=== PATIENT | female | born 1945 | race Caucasian/White ===

== ENCOUNTER 2017-06-21 09:40 | Emergency (ER) | payer MEDICARE | END 2017-06-21 10:53 | disposition home or self-care (01) | LOC: M ED 09:40 | DX: T69.9XXA Effect of reduced temperature, unspecified, initial encounter (principal); Y92.9 Unspecified place or not applicable; Y93.9 Activity, unspecified; E11.9 Type 2 diabetes mellitus without complications; I10 Essential (primary) hypertension; Z86.73 Personal history of transient ischemic attack (TIA), and cerebral infarction without residual deficits; Z79.899 Other long term (current) drug therapy | CPT/HCPCS: 99284 ==

== ENCOUNTER 2018-01-20 13:32 | Inpatient (IN) | payer MEDICARE ==
[2018-01-20 15:01] LABS: VENOUS BASE EXCESS -1.7 (-2.0-2.0); VENOUS HCO3 23.3 MEQ/L (23.0-27.0); VENOUS O2 SATURATION 93.7 % (60.0-80.0); VENOUS PARTIAL PRESSURE CO2 40.3 mmHg (38.0-50.0); VENOUS PARTIAL PRESSURE O2 67.3 mmHg (30.0-50.0); VENOUS TOTAL CO2 24.5 MEQ/L (24.0-28.0)
[2018-01-20 15:06] LABS: BASO % 0.6 % (0.0-1.0); EOS # 0.1 10^3/uL (0.0-0.50); EOS % 1.4 % (0.0-3.0); HEMOGLOBIN 12.3 g/dl (12.0-15.5); IMMATURE GRANULOCYTE % 1.1 % (0-3.0); LYMPH # 1.4 10^3/uL (1.5-4.5); MEAN CORPUSCULAR HGB CONC 31.5 g/dl (32.0-36.5); MEAN CORPUSCULAR VOLUME 85.7 fl (80.0-96.0); MONO # 0.5 10^3/uL (0.0-0.8); MONO % 7.2 % (0.0-5.0); NEUTROPHILS % 69.7 % (36.0-66.0); PLATELET COUNT, AUTOMATED 340 10^3/uL (150-450); RED BLOOD COUNT 4.55 10^6/uL (4.00-5.40); RED CELL DISTRIBUTION WIDTH 17.1 % (11.5-14.5); WHITE BLOOD COUNT 7.2 10^3/uL (4.0-10.0)
[2018-01-20 15:21] LABS: OSMOLALITY SERUM 300 MOSM/KG (280-301)
[2018-01-20 15:29] LABS: AMMONIA 26 uMOL/L (<32)
[2018-01-20 15:33] LABS: ALBUMIN 3.5 GM/DL (3.2-5.2); ALBUMIN/GLOBULIN RATIO 0.88 (1.00-1.93); ALKALINE PHOSPHATASE 115 U/L (45-117); ALT/SGPT 28 U/L (12-78); ANION GAP 10 MEQ/L (8-16); AST/SGOT 33 U/L (7-37); BILIRUBIN,DIRECT 0.1 MG/DL (0.0-0.2); BILIRUBIN,TOTAL 0.3 MG/DL (0.2-1.0); BLOOD UREA NITROGEN 22 MG/DL (7-18); CARBON DIOXIDE LEVEL 27 MEQ/L (21-32); CHLORIDE LEVEL 108 MEQ/L (98-107); CPK CREATINE PHOSPHOKINASE 119 U/L (26-192); CREATININE FOR GFR 0.86 MG/DL (0.55-1.30); GLOMERULAR FILTRATION RATE > 60.0 (>39); GLUCOSE, FASTING 115 MG/DL (70-100); POTASSIUM SERUM 3.9 MEQ/L (3.5-5.1); SODIUM LEVEL 145 MEQ/L (136-145); TOTAL PROTEIN 7.5 GM/DL (6.4-8.2); TROPONIN I < 0.02 NG/ML (< 0.10)
[2018-01-20 15:38] LABS: CK-MB VALUE MASS 1.9 NG/ML (<3.6); MB/CK RELATIVE INDEX 1.59 (< OR =4)
[2018-01-20 16:33] LABS: INR 1.03; PROTHROMBIN TIME 13.6 SECONDS (12.1-14.4)
[2018-01-20] MEDS ORDERED: BISACODYL 10 MG SUPP PR (18:45)
[2018-01-20] MEDS ORDERED: ONDANSETRON 4 MG TAB (S0181) PO (18:45)
[2018-01-20] MEDS ORDERED: ASPIRIN 81 MG CHEW TABLET PO (18:45)
[2018-01-20] MEDS ORDERED: GLUCAGON FOR INJ 1 MG VIAL (J1610) SC (19:00)
[2018-01-20] MEDS ORDERED: DEXTROSE 50% 50 ML SYRINGE IV (19:00)
[2018-01-20] MEDS ORDERED: GLUCOSE 4 GM CHEW TABLET PO (19:00)
[2018-01-20] MEDS: CLOPIDOGREL 75 MG TAB PO (20:04)
[2018-01-20] MEDS: amLODIPine 5 MG TAB PO (20:04)
[2018-01-20] MEDS: ACETAMINOPHEN TAB 650MG DOSE (2X325MG) PO (20:04)
[2018-01-20 20:19] LABS: MAGNESIUM LEVEL 2.1 MG/DL (1.8-2.4)
[2018-01-20] MEDS: ATORVASTATIN 20 MG TAB PO (23:24)
[2018-01-21 06:13] LABS: BASO % 0.6 % (0.0-1.0); EOS # 0.2 10^3/uL (0.0-0.50); EOS % 2.7 % (0.0-3.0); HEMATOCRIT 37.5 % (36.0-47.0); HEMOGLOBIN 11.8 g/dl (12.0-15.5); IMMATURE GRANULOCYTE % 0.8 % (0-3.0); LYMPH # 2.3 10^3/uL (1.5-4.5); LYMPH % 36.7 % (24.0-44.0); MEAN CORPUSCULAR HEMOGLOBIN 26.9 pg (27.0-33.0); MEAN CORPUSCULAR HGB CONC 31.5 g/dl (32.0-36.5); MEAN CORPUSCULAR VOLUME 85.6 fl (80.0-96.0); MONO # 0.5 10^3/uL (0.0-0.8); MONO % 7.4 % (0.0-5.0); NEUTROPHILS # 3.3 10^3/uL (1.8-7.7); NEUTROPHILS % 51.8 % (36.0-66.0); PLATELET COUNT, AUTOMATED 326 10^3/uL (150-450); RED BLOOD COUNT 4.38 10^6/uL (4.00-5.40); RED CELL DISTRIBUTION WIDTH 17.2 % (11.5-14.5); WHITE BLOOD COUNT 6.3 10^3/uL (4.0-10.0)
[2018-01-21 06:30] LABS: ESTIMATED AVERAGE GLUCOSE 126 MG/DL (60-110)
[2018-01-21 06:42] LABS: ALBUMIN 3.3 GM/DL (3.2-5.2); ALBUMIN/GLOBULIN RATIO 0.85 (1.00-1.93); ALKALINE PHOSPHATASE 99 U/L (45-117); ALT/SGPT 26 U/L (12-78); ANION GAP 8 MEQ/L (8-16); AST/SGOT 28 U/L (7-37); BILIRUBIN,TOTAL 0.3 MG/DL (0.2-1.0); BLOOD UREA NITROGEN 22 MG/DL (7-18); CALCIUM LEVEL 8.7 MG/DL (8.8-10.2); CARBON DIOXIDE LEVEL 26 MEQ/L (21-32); CHLORIDE LEVEL 110 MEQ/L (98-107); CHOLESTEROL LEVEL 172 MG/DL (<200); CHOLESTEROL RISK RATIO 3.071 (<5); CREATININE FOR GFR 0.84 MG/DL (0.55-1.30); GLOMERULAR FILTRATION RATE > 60.0 (>39); GLUCOSE, FASTING 115 MG/DL (70-100); HDL CHOLESTEROL 56 MG/DL (>40); LDL CHOLESTEROL 77.8 MG/DL (<100); NON-HDL-C 116 MG/DL; POTASSIUM SERUM 3.3 MEQ/L (3.5-5.1); SODIUM LEVEL 144 MEQ/L (136-145); TOTAL PROTEIN 7.2 GM/DL (6.4-8.2); TRIGLYCERIDES LEVEL 191 MG/DL (<150)
[2018-01-21] MEDS: DULoxetine 30 MG CAP (CYMBALTA) PO (08:50)
[2018-01-21] MEDS: PANTOPRAZOLE 40MG TAB (PROTONIX) PO (08:50)
[2018-01-21] MEDS: LOSARTAN 50 MG TAB PO (08:50)
[2018-01-21] MEDS: CLOPIDOGREL 75 MG TAB PO (08:50)
[2018-01-21] MEDS: ACETAMINOPHEN TAB 650MG DOSE (2X325MG) PO ×3 (08:51→20:07)
[2018-01-21] MEDS: amLODIPine 5 MG TAB PO (08:52)
[2018-01-21] MEDS ORDERED: FUROSEMIDE 20 MG TAB PO (09:00)
[2018-01-21] MEDS ORDERED: OMEPRAZOLE 20 MG CAP PO (09:00)
[2018-01-21] MEDS: hydroCHLOROthiazide 12.5 MG CAPSULE PO (09:03)
[2018-01-21] MEDS: HumaLOG INSULIN (NovoLOG) PER UNIT SC ×4 (09:03→20:10)
[2018-01-21 11:42] LABS: BEDSIDE GLUCOSE 141 MG/DL (83-110)
[2018-01-21] MEDS: POTASSIUM CHLORIDE 10 MEQ SR TABLET PO (11:51)
[2018-01-21 16:33] LABS: BEDSIDE GLUCOSE 131 MG/DL (83-110)
[2018-01-21] MEDS: ATORVASTATIN 20 MG TAB PO (20:07)
[2018-01-21 20:19] LABS: BEDSIDE GLUCOSE 144 MG/DL (83-110)
[2018-01-22 05:38] LABS: BASO # 0.1 10^3/uL (0.0-0.2); EOS # 0.2 10^3/uL (0.0-0.50); EOS % 3.1 % (0.0-3.0); HEMATOCRIT 37.3 % (36.0-47.0); HEMOGLOBIN 11.8 g/dl (12.0-15.5); IMMATURE GRANULOCYTE % 0.7 % (0-3.0); LYMPH # 2.6 10^3/uL (1.5-4.5); LYMPH % 36.6 % (24.0-44.0); MEAN CORPUSCULAR HEMOGLOBIN 26.8 pg (27.0-33.0); MEAN CORPUSCULAR HGB CONC 31.6 g/dl (32.0-36.5); MEAN CORPUSCULAR VOLUME 84.8 fl (80.0-96.0); MONO # 0.5 10^3/uL (0.0-0.8); MONO % 7.3 % (0.0-5.0); NEUTROPHILS # 3.7 10^3/uL (1.8-7.7); NEUTROPHILS % 51.3 % (36.0-66.0); PLATELET COUNT, AUTOMATED 301 10^3/uL (150-450); RED CELL DISTRIBUTION WIDTH 17.2 % (11.5-14.5); WHITE BLOOD COUNT 7.1 10^3/uL (4.0-10.0)
[2018-01-22 05:59] LABS: ANION GAP 8 MEQ/L (8-16); BLOOD UREA NITROGEN 21 MG/DL (7-18); CALCIUM LEVEL 8.7 MG/DL (8.8-10.2); CARBON DIOXIDE LEVEL 24 MEQ/L (21-32); CHLORIDE LEVEL 110 MEQ/L (98-107); CREATININE FOR GFR 0.84 MG/DL (0.55-1.30); GLOMERULAR FILTRATION RATE > 60.0 (>39); GLUCOSE, FASTING 120 MG/DL (70-100); POTASSIUM SERUM 3.6 MEQ/L (3.5-5.1); SODIUM LEVEL 142 MEQ/L (136-145)
[2018-01-22] MEDS: PANTOPRAZOLE 40MG TAB (PROTONIX) PO (07:58)
[2018-01-22] MEDS: CLOPIDOGREL 75 MG TAB PO (07:58)
[2018-01-22] MEDS: hydroCHLOROthiazide 12.5 MG CAPSULE PO (07:58)
[2018-01-22] MEDS: LOSARTAN 50 MG TAB PO (07:59)
[2018-01-22] MEDS: amLODIPine 5 MG TAB PO (07:59)
[2018-01-22] MEDS: DULoxetine 30 MG CAP (CYMBALTA) PO (07:59)
[2018-01-22] MEDS: HumaLOG INSULIN (NovoLOG) PER UNIT SC ×3 (08:12→17:15)
[2018-01-22] MEDS: ACETAMINOPHEN TAB 650MG DOSE (2X325MG) PO ×3 (08:19→20:57)
[2018-01-22 11:45] LABS: BEDSIDE GLUCOSE 173 MG/DL (83-110)
[2018-01-22 17:17] LABS: BEDSIDE GLUCOSE 97 MG/DL (83-110)
[2018-01-22 20:28] LABS: BEDSIDE GLUCOSE 167 MG/DL (83-110)
[2018-01-22] MEDS: ATORVASTATIN 20 MG TAB PO (20:57)
[2018-01-22] MEDS: glipiZIDE *XL* 2.5MG TABLET PO (20:58)
[2018-01-23 06:11] LABS: BASO # 0.1 10^3/uL (0.0-0.2); BASO % 0.8 % (0.0-1.0); EOS # 0.2 10^3/uL (0.0-0.50); EOS % 2.8 % (0.0-3.0); HEMATOCRIT 38.5 % (36.0-47.0); HEMOGLOBIN 12.1 g/dl (12.0-15.5); IMMATURE GRANULOCYTE % 0.6 % (0-3.0); LYMPH # 2.6 10^3/uL (1.5-4.5); LYMPH % 33.6 % (24.0-44.0); MEAN CORPUSCULAR HEMOGLOBIN 26.6 pg (27.0-33.0); MEAN CORPUSCULAR HGB CONC 31.4 g/dl (32.0-36.5); MEAN CORPUSCULAR VOLUME 84.6 fl (80.0-96.0); MONO # 0.5 10^3/uL (0.0-0.8); MONO % 6.3 % (0.0-5.0); NEUTROPHILS # 4.4 10^3/uL (1.8-7.7); NEUTROPHILS % 55.9 % (36.0-66.0); PLATELET COUNT, AUTOMATED 321 10^3/uL (150-450); RED BLOOD COUNT 4.55 10^6/uL (4.00-5.40); RED CELL DISTRIBUTION WIDTH 17.1 % (11.5-14.5); WHITE BLOOD COUNT 7.8 10^3/uL (4.0-10.0)
[2018-01-23 06:24] LABS: ANION GAP 9 MEQ/L (8-16); BLOOD UREA NITROGEN 18 MG/DL (7-18); CARBON DIOXIDE LEVEL 25 MEQ/L (21-32); CHLORIDE LEVEL 109 MEQ/L (98-107); CREATININE FOR GFR 0.87 MG/DL (0.55-1.30); GLOMERULAR FILTRATION RATE > 60.0 (>39); GLUCOSE, FASTING 87 MG/DL (70-100); POTASSIUM SERUM 3.7 MEQ/L (3.5-5.1); SODIUM LEVEL 143 MEQ/L (136-145)
[2018-01-23] MEDS: HumaLOG INSULIN (NovoLOG) PER UNIT SC (07:34)
[2018-01-23] MEDS: hydroCHLOROthiazide 12.5 MG CAPSULE PO (08:48)
[2018-01-23] MEDS: CLOPIDOGREL 75 MG TAB PO (08:48)
[2018-01-23] MEDS: DULoxetine 30 MG CAP (CYMBALTA) PO (08:49)
[2018-01-23] MEDS: LOSARTAN 50 MG TAB PO (08:49)
[2018-01-23] MEDS: glipiZIDE *XL* 2.5MG TABLET PO (08:49)
[2018-01-23] MEDS: PANTOPRAZOLE 40MG TAB (PROTONIX) PO (08:50)
[2018-01-23] MEDS: amLODIPine 5 MG TAB PO (08:50)
== END 2018-01-23 11:26 | disposition home or self-care (01) | DRG 65 ==
LOC: M MSPAV 01-22 18:22 → M ED 13:32 → M ED INP 18:37 → M PCU 21:54
DX: I63.9 Cerebral infarction, unspecified (principal); Z68.41 Body mass index [BMI] 40.0-44.9, adult; E66.01 Morbid (severe) obesity due to excess calories; I10 Essential (primary) hypertension; E78.5 Hyperlipidemia, unspecified; E11.9 Type 2 diabetes mellitus without complications; Z87.891 Personal history of nicotine dependence; Z79.899 Other long term (current) drug therapy

== ENCOUNTER → 2020-11-15 | Outpatient (CLI) | payer MEDICARE, OTHER ==
[~2020-11-15] MED LIST: AMLO1TAB24 PO; ATOR40TA75 PO; AUGM875T28 PO; CLOP75TA2 PO; DITR5TAB PO; DULO1CAP6 PO; FURO20TA2 PO; GLIP2.5T6 PO; HYDR12.55 PO; LOSA100T50 PO; LOSA25TA14 PO; LOSA50TA88 PO; METF10004 PO; OMEP40CA97 PO; PLAV1TAB2 PO; PRED20TAB PO; SIMV40TA20 PO; TRAM50TA2; TRIC1TAB PO
--- NOTE | 2020-11-15 13:26 | PFTRPT ---
Height: 61.00 Inches Weight: 226.00 Lbs BSA: 1.99 Diagnosis: J44.9 DATE: 11/15/2020 ORDERING PHYSICIAN: Garett Valdez MD Pre and post bronchodilator studies have excellent technical quality. Forced vital capacity is borderline. FEV1 is out of proportion. Obstructive index is therefore reduced. Expiratory limit of the flow-volume loop does suggest some degree of flow rate limitation. Total lung capacity is normal. Residual volume is in proportion. Diffusing capacity although reduced does not completely correct for alveolar volume. Hemoglobin reduced at 11.7. Airway resistance borderline elevated with a concomitant decrease in airway conductance. IMPRESSION: Mild obstructive ventilatory impairment with underlying diffusing capacity impairment and mild anemia. Please correlate clinically. MTDD
== END ==
LOC: M CARPUL 12:45
PROVIDERS: ATTEND Internal Medicine Pulmonary Disease
DX: J44.9 Chronic obstructive pulmonary disease, unspecified (principal)

== ENCOUNTER → 2021-01-01 | Outpatient (CLI) | payer OTHER ==
[~2021-01-01] MED LIST changes: +OMEP40CA4 PO; -OMEP40CA97 PO
--- NOTE | 2021-01-01 14:24 | REP ---
INDICATION: CELLULITIS OF RIGHT LOWER LIMB. COMPARISON: None. TECHNIQUE: Three views of the right knee are provided. FINDINGS: Three views of the right knee demonstrate mild non articular spurring at the superior pole of the patella at the quadriceps tendon insertion. There is similar spurring on the anterior tibial apophysis at the distal insertion of the patellar tendon. There is minimal patellar spurring laterally on the sunrise view consistent with osteoarthritis. There is mild diffuse osteopenia. Vascular calcification is observed.. No fracture or subluxation is seen. No opaque foreign body noted. IMPRESSION: Mild patellar and for anterior tibial apophyseal spurring. Minimal osteoarthritic spurring of the patella. Diffuse osteopenia. No acute abnormality.. <Electronically signed by Quinton Sheehan > 01/01/21 [id number]
[2021-01-01 15:43] LABS: BASO # 0.1 10^3/uL (0.0-0.2); BASO % 1.2 % (0.0-1.0); EOS # 0.3 10^3/uL (0.0-0.5); EOS % 3.4 % (0.0-3.0); HEMATOCRIT 40.2 % (36.0-47.0); HEMOGLOBIN 12.1 g/dl (12.0-15.5); LYMPH # 1.9 10^3/uL (1.5-5.0); LYMPH % 22.5 % (24.0-44.0); MEAN CORPUSCULAR HEMOGLOBIN 25.3 pg (27.0-33.0); MEAN CORPUSCULAR HGB CONC 30.1 g/dl (32.0-36.5); MEAN CORPUSCULAR VOLUME 83.9 fl (80.0-96.0); MONO # 0.5 10^3/uL (0.0-0.8); MONO % 5.5 % (2.0-8.0); NEUTROPHILS # 5.7 10^3/uL (1.5-8.5); NEUTROPHILS % 66.6 % (36.0-66.0); PLATELET COUNT, AUTOMATED 367 10^3/uL (150-450); RED BLOOD COUNT 4.79 10^6/uL (4.00-5.40); WHITE BLOOD COUNT 8.5 10^3/uL (4.0-10.0)
[2021-01-01 16:37] LABS: ERYTHROCYTE SEDIMENTATION RATE 32 mm/hr (0-30)
[2021-01-01 17:08] LABS: ALBUMIN 3.6 GM/DL (3.2-5.2); BILIRUBIN,TOTAL 0.4 MG/DL (0.2-1.0); C REACTIVE PROTEIN QUANTITATIV 1.14 MG/DL (0.00-0.30); CALCIUM LEVEL 9.5 MG/DL (8.8-10.2); GLOMERULAR FILTRATION RATE 57.7 (>39); POTASSIUM SERUM 3.6 MEQ/L (3.5-5.1); TOTAL PROTEIN 7.7 GM/DL (6.4-8.2)
[2021-01-03 14:12] LABS: Lyme Disease IgG/IgM Antibodie <0.91 ISR (0.00-0.90); Lyme Disease IgM Ab Quantitati <0.80 index (0.00-0.79)
== END ==
LOC: M PLAIMG 12:18
PROVIDERS: ATTEND Internal Medicine Infectious Disease
DX: L03.115 Cellulitis of right lower limb (principal); M85.851 Other specified disorders of bone density and structure, right thigh; M25.761 Osteophyte, right knee; M25.561 Pain in right knee
CPT/HCPCS: 36415; 73560; 80053; 85025; 85652; 86063; 86140; 86617; 86803; G0463

== ENCOUNTER → 2021-02-16 | Outpatient (CLI) | payer OTHER | LOC: M LABSMTC 09:00 | PROVIDERS: ATTEND Surgery Vascular Surgery | DX: Z20.828 Contact with and (suspected) exposure to other viral communicable diseases (principal); Z11.59 Encounter for screening for other viral diseases ==

== ENCOUNTER → 2021-05-30 | Outpatient (CLI) | payer OTHER ==
[~2021-05-30] MED LIST changes: +LOSA100T45 PO; -LOSA100T50 PO; +LOSA25TA13 PO; -LOSA25TA14 PO; +LOSA50TA28 PO; -LOSA50TA88 PO
== END ==
LOC: M RAD 09:31
PROVIDERS: ATTEND Otolaryngology
DX: D37.030 Neoplasm of uncertain behavior of the parotid salivary glands (principal)

== ENCOUNTER → 2022-05-06 | Outpatient (CLI) | payer OTHER ==
[~2022-05-06] MED LIST changes: +CLOP75TA99 PO; +ENTR1TAB7; +FARX1TAB3; +FURO20TA2; +HYDR-3911; +OXYB10TA23; +PANT40TA29; -PLAV1TAB2 PO; +SPIR50TA4
== END ==
LOC: M RAD 13:26
PROVIDERS: ATTEND Internal Medicine Medical Oncology
DX: Z12.2 Encounter for screening for malignant neoplasm of respiratory organs (principal)

== ENCOUNTER → 2022-10-08 | Outpatient (CLI) | payer OTHER ==
[~2022-10-08] MED LIST changes: +ISOVUE-370 76% 100ML VIAL As Ordered ONE; -LOSA100T45 PO; +LOSA100T46 PO
== END ==
LOC: M RAD 14:56
PROVIDERS: ATTEND Registered Nurse
DX: I70.8 Atherosclerosis of other arteries (principal); I70.0 Atherosclerosis of aorta; K55.1 Chronic vascular disorders of intestine; K76.89 Other specified diseases of liver; N28.1 Cyst of kidney, acquired; I70.1 Atherosclerosis of renal artery; I70.203 Unspecified atherosclerosis of native arteries of extremities, bilateral legs
CPT/HCPCS: 75635; Q9967

== ENCOUNTER 2022-10-17 13:22 | Emergency (ER) | payer OTHER ==
[~2022-10-17] VITALS: Ht 154.9 cm; Wt 98.2 kg
[~2022-10-17 13:22] MED LIST changes: -ISOVUE-370 76% 100ML VIAL As Ordered ONE
[2022-10-17 15:07] VITALS: BP 138/75
== END 2022-10-17 15:17 | disposition home or self-care (01) ==
LOC: M ED 13:22
DX: M79.661 Pain in right lower leg (principal); E11.9 Type 2 diabetes mellitus without complications; I10 Essential (primary) hypertension; E78.5 Hyperlipidemia, unspecified; J44.9 Chronic obstructive pulmonary disease, unspecified; K21.9 Gastro-esophageal reflux disease without esophagitis; F12.10 Cannabis abuse, uncomplicated; Z86.79 Personal history of other diseases of the circulatory system; Z79.01 Long term (current) use of anticoagulants; Z79.82 Long term (current) use of aspirin; Z79.02 Long term (current) use of antithrombotics/antiplatelets; Z79.899 Other long term (current) drug therapy

== ENCOUNTER 2023-02-11 07:40 | Day surgery (SDC) | payer OTHER ==
[~2023-02-11] VITALS: Ht 154.9 cm; Wt 98.2 kg
[~2023-02-11 07:40] MED LIST changes: +ALBU6.7H6 INH; +ELIQ5TAB PO; -ENTR1TAB7; +ENTR1TAB7 PO; -FURO20TA2; -HYDR-3911; +HYDR-3911 PO; +IPRA0.00; +NS 1,000 ML IV ONE; -OXYB10TA23; +OXYB10TA23 PO; -PANT40TA29; +PANT40TA29 PO; -SPIR50TA4; +SPIR50TA4 PO; +TREL1AER
[2023-02-11] MEDS ORDERED: fentaNYL 100 MCG/2 ML INJECTION As Ordered ONE (07:47)
[2023-02-11] MEDS ORDERED: LIDOCAINE 2% 100MG/5ML SDV (FOR ANES.) As Ordered ONE (08:03)
[2023-02-11] MEDS ORDERED: propofoL 200 MG/20 ML VIAL As Ordered ONE (08:03)
[2023-02-11 09:05] VITALS: TEMP 99.1
[2023-02-11] MEDS ORDERED: ALBUTEROL SULFATE 2.5MG/0.5ML INH NEB SOLN NEB ONE (09:35)
[2023-02-11 10:13] VITALS: BP 146/67; O2SAT 97
== END 2023-02-11 13:22 | disposition home or self-care (01) ==
LOC: M OPP 07:40
PROVIDERS: ATTEND Internal Medicine Gastroenterology
DX: Z86.010 Personal history of colon polyps (principal); D12.2 Benign neoplasm of ascending colon; D12.3 Benign neoplasm of transverse colon; K63.5 Polyp of colon; K57.30 Diverticulosis of large intestine without perforation or abscess without bleeding; K64.8 Other hemorrhoids; Q39.4 Esophageal web; E11.9 Type 2 diabetes mellitus without complications; G47.33 Obstructive sleep apnea (adult) (pediatric); Z99.89 Dependence on other enabling machines and devices; Z86.73 Personal history of transient ischemic attack (TIA), and cerebral infarction without residual deficits; I50.9 Heart failure, unspecified; Z79.01 Long term (current) use of anticoagulants; Z79.02 Long term (current) use of antithrombotics/antiplatelets; Z79.1 Long term (current) use of non-steroidal anti-inflammatories (NSAID); Z79.51 Long term (current) use of inhaled steroids; Z79.82 Long term (current) use of aspirin; Z79.84 Long term (current) use of oral hypoglycemic drugs; Z79.899 Other long term (current) drug therapy; Z88.5 Allergy status to narcotic agent
CPT/HCPCS: 43450; 45380; 45385; 88305; J3010

== ENCOUNTER → 2023-05-13 | Outpatient (CLI) | payer OTHER ==
[~2023-05-13] MED LIST changes: -NS 1,000 ML IV ONE
== END ==
LOC: M RAD 13:24
PROVIDERS: ATTEND Internal Medicine Pulmonary Disease
DX: Z12.2 Encounter for screening for malignant neoplasm of respiratory organs (principal); Z87.891 Personal history of nicotine dependence

== ENCOUNTER → 2024-05-04 | Outpatient (REF) | payer OTHER ==
[~2024-05-04] MED LIST changes: -HYDR-3911 PO; +HYDR50TA46 PO
== END ==
LOC: M LAB REF 17:19
PROVIDERS: ATTEND Internal Medicine Nephrology
DX: N39.0 Urinary tract infection, site not specified (principal)

== ENCOUNTER 2024-06-02 13:50 | Emergency (ER) | payer MEDICARE, OTHER ==
[~2024-06-02] VITALS: Ht 154.9 cm; Wt 100.0 kg
[~2024-06-02 13:50] MED LIST changes: +ALBU8.5H INH; +AMLO1TAB25 PO; +DULO1CAP4 PO; +DULO20CA27 PO; +EZET10TA21 PO; +FURO40TA2 PO; +METO1TAB32 PO; +MYRB25TA PO; -TREL1AER; +TREL1AER INH; +VALS1TAB67 PO
[2024-06-02] MEDS: NORCO, ANEXSIA 5/325MG TABLET (HYDROcodone/ACETAMINOPHEN) PO ONE (14:52)
[2024-06-02] MEDS ORDERED: HYDR-3713 (15:19)
[2024-06-02 17:14] VITALS: BP 151/67; TEMP 97; O2SAT 90
== END 2024-06-02 17:23 | disposition home or self-care (01) ==
LOC: M ED 13:50
DX: S80.12XA Contusion of left lower leg, initial encounter (principal); W22.8XXA Striking against or struck by other objects, initial encounter; Y92.9 Unspecified place or not applicable; Y93.89 Activity, other specified; Y99.9 Unspecified external cause status; Z88.5 Allergy status to narcotic agent; E11.9 Type 2 diabetes mellitus without complications; I10 Essential (primary) hypertension; E78.5 Hyperlipidemia, unspecified; J44.9 Chronic obstructive pulmonary disease, unspecified; K21.9 Gastro-esophageal reflux disease without esophagitis; Z79.01 Long term (current) use of anticoagulants; Z79.899 Other long term (current) drug therapy

== ENCOUNTER → 2024-07-13 | Outpatient (REF) | payer OTHER ==
[~2024-07-13] MED LIST changes: +HYDR-3713
== END ==
LOC: M LAB REF 17:09
PROVIDERS: ATTEND Internal Medicine Nephrology
DX: N39.0 Urinary tract infection, site not specified (principal)

== ENCOUNTER → 2024-07-25 | Outpatient (REF) | payer OTHER ==
[2024-07-25 18:09] LABS: APPEARANCE, URINE HAZY (CLEAR); BACTERIA, URINE AUTO NEGATIVE (NEGATIVE); BILIRUBIN, URINE AUTO NEGATIVE (NEGATIVE); BLOOD, URINE BLOOD 3+ (NEGATIVE); COLOR, URINE YELLOW (YELLOW); GLUCOSE, URINE (UA) AUTO 3+ mg/dL (NEGATIVE); KETONE, URINE AUTO NEGATIVE (NEGATIVE); LEUKOCYTE ESTERASE, URINE AUTO TRACE (NEGATIVE); MUCUS, URINE SMALL (NEGATIVE); NITRITE, URINE AUTO NEGATIVE (NEGATIVE); PROTEIN, URINE AUTO 2+ mg/dL (NEGATIVE); RBC, URINE AUTO TNTC /HPF (0-3); SPECIFIC GRAVITY URINE AUTO 1.012 (1.002-1.035); SQUAMOUS EPITHELIAL CELL UR AU 1 /HPF (0-6); UROBILINOGEN, URINE AUTO 0.2 mg/dL (0.0-2.0); WBC, URINE AUTO 26 /HPF (0-3)
== END ==
LOC: M SMT 17:09
PROVIDERS: ATTEND Specialist
DX: R31.0 Gross hematuria (principal)

== ENCOUNTER 2025-01-16 12:55 | Day surgery (SDC) | payer OTHER ==
[~2025-01-16] VITALS: Ht 154.9 cm; Wt 92.0 kg
[~2025-01-16 12:55] MED LIST changes: +ACETAMINOPHEN 1000MG/100ML IV BAG As Ordered ONE; +ALBUTEROL 90 MCG/ACT 8 GM HFA INHALER INH PRN; -COLA100C5 PO; +DEXTROSE 50% 50 ML SYRINGE IV PRN; +GLUCAGON INJ 1 MG VIAL SC PRN; +GLUCOSE 4 GM CHEW PO PRN; +GLYCOPYRROLATE INJ 0.2 MG/ML 2 ML VIAL As Ordered ONE; +LIDOCAINE 2% 100 MG/5 ML SDV (FOR ANES.) As Ordered ONE; +MIDAZOLAM INJ 2 MG/2 ML VIAL As Ordered ONE; +ONDANSETRON 4MG 2ML VIAL As Ordered ONE; -ROCURONIUM BROMIDE 50MG/5ML VIAL As Ordered ONE; -SUGAMMADEX SODIUM 500 MG/5 ML VIAL As Ordered ONE; +dexAMETHasone 4 MG/ML 1 ML VIAL As Ordered ONE
[2025-01-16] MEDS ORDERED: ROCURONIUM BROMIDE 50MG/5ML VIAL As Ordered ONE (13:35)
[2025-01-16] MEDS: ISOVUE-300 61% 100 ML VIAL As Ordered ONE (14:17)
[2025-01-16] MEDS: BOTOX THERAPEUTIC 100 UNIT VIAL As Ordered ONE (14:29)
[2025-01-16] MEDS ORDERED: HYDROmorphone HCL 2 MG/ML 1 ML VIAL As Ordered ONE (14:51)
[2025-01-16] MEDS ORDERED: ONDANSETRON 4MG 2ML VIAL IV PRN (15:35)
[2025-01-16 16:21] LABS: PLATELET COUNT, AUTOMATED 529 10^3/uL (150-450)
[2025-01-16 16:46] LABS: CALCIUM LEVEL 8.6 MG/DL (8.3-10.6); CARBON DIOXIDE LEVEL 26.0 MMOL/L (20-31); CHLORIDE LEVEL 111.0 MMOL/L (98-107); CREATININE FOR GFR 1.27 MG/DL (0.55-1.30); GLOMERULAR FILTRATION RATE 43.3 (>39); POTASSIUM SERUM 4.6 MMOL/L (3.5-5.1); SODIUM LEVEL 148.0 MMOL/L (136-145)
[2025-01-16] MEDS: PERCOCET 5MG/325MG TAB PO PRN (17:05)
[2025-01-16 19:55] VITALS: BP 161/83; TEMP 97; O2SAT 92
[2025-01-16] MEDS: ceFAZolin SOD 2 GM IV ONCE IV ONE (20:00)
[2025-01-16] MEDS: NS (Normal Saline) 0.9% 1,000 ML IV SCH (20:00)
[2025-01-16] MEDS: DOCUSATE SODIUM 100 MG CAPSULE PO SCH (20:28)
[2025-01-16] MEDS: METOPROLOL SUCC. 25 MG *XL* TAB PO SCH (20:28)
[2025-01-16] MEDS: ACETAMINOPHEN 325 MG TAB PO PRN (20:29)
[2025-01-16 20:30] VITALS: BP 155/84; TEMP 97.2; O2SAT 94
[2025-01-16] MEDS: ceFAZolin SOD 1 GM in DEXTROSE 5% (D5W) ADV/MINI-BAG 50 ML IV SCH (20:33)
[2025-01-16 21:00] VITALS: BP 173/85; TEMP 97.2; O2SAT 92; O2SAT 93
[2025-01-16] MEDS: INSULIN LISPRO (NovoLOG) PER UNIT SC SCH (21:00)
[2025-01-16] MEDS ORDERED: COLA100C5 PO (21:06)
[2025-01-16] MEDS: ONDANSETRON 4MG 2ML VIAL IV PRN (21:29)
[2025-01-16] MEDS ORDERED: HOME MED LIST COMPLETE! XX SCH (21:40)
[2025-01-16 22:00] VITALS: BP 172/84; TEMP 97.2; O2SAT 91
[2025-01-16 23:00] VITALS: BP 182/81; TEMP 97.3; O2SAT 90
[2025-01-17] VITALS: BP 168/71; TEMP 97.2; O2SAT 91
[2025-01-17 01:00] VITALS: BP 168/70; TEMP 97.2; O2SAT 90
[2025-01-17 05:00] VITALS: BP 165/71; TEMP 97.2; O2SAT 91
[2025-01-17] MEDS: INSULIN LISPRO (NovoLOG) PER UNIT SC SCH (07:30)
[2025-01-17 08:00] VITALS: BP 164/84; TEMP 97.5; O2SAT 92
[2025-01-17 08:09] LABS: PLATELET COUNT, AUTOMATED 420 10^3/uL (150-450)
[2025-01-17 08:15] LABS: CALCIUM LEVEL 8.3 MG/DL (8.3-10.6); CARBON DIOXIDE LEVEL 24.0 MMOL/L (20-31); CHLORIDE LEVEL 112.0 MMOL/L (98-107); CREATININE FOR GFR 1.24 MG/DL (0.55-1.30); GLOMERULAR FILTRATION RATE 44.5 (>39); POTASSIUM SERUM 4.6 MMOL/L (3.5-5.1); SODIUM LEVEL 146.0 MMOL/L (136-145)
[2025-01-17] MEDS: ISOSORBIDE MONONITRATE 60 MG XR TAB PO SCH (09:00)
[2025-01-17] MEDS ORDERED: ENTER DRUG NAME HERE (PATIENT'S OWN MED) INH SCH (09:00)
[2025-01-17] MEDS: amLODIPine 10 MG TAB PO SCH (09:14)
[2025-01-17] MEDS: ATORVASTATIN 20 MG TAB PO SCH (09:15)
[2025-01-17] MEDS: PANTOPRAZOLE 40MG TAB PO SCH (09:15)
[2025-01-17] MEDS: EZETIMIBE 10 MG TABLET PO SCH (09:16)
[2025-01-17] MEDS: ASPIRIN 81 MG ENTERIC TABLET PO SCH (09:16)
[2025-01-17 09:17] VITALS: BP 168/70
[2025-01-17] MEDS: FUROSEMIDE 20 MG TAB PO SCH (09:17)
== END 2025-01-17 12:25 | disposition home or self-care (01) ==
LOC: M SDC 12:55 → M MS5PR 19:55 → M SDC 01-17 12:25
PROVIDERS: ATTEND Urology
DX: N20.0 Calculus of kidney (principal); K76.0 Fatty (change of) liver, not elsewhere classified; E78.5 Hyperlipidemia, unspecified; E11.9 Type 2 diabetes mellitus without complications; R60.9 Edema, unspecified; G47.33 Obstructive sleep apnea (adult) (pediatric); Z88.5 Allergy status to narcotic agent; Z91.013 Allergy to seafood; Z79.01 Long term (current) use of anticoagulants; Z79.51 Long term (current) use of inhaled steroids; J44.9 Chronic obstructive pulmonary disease, unspecified; Z86.73 Personal history of transient ischemic attack (TIA), and cerebral infarction without residual deficits

== ENCOUNTER → 2025-01-16 | Outpatient (CLI) | payer OTHER ==
[~2025-01-16] VITALS: Ht 154.9 cm; Wt 93.0 kg
[~2025-01-16] MED LIST changes: +ASPI81TA26 PO; +CARV3.12 PO; +COLA100C5 PO; +ECOT81TA5 PO; +FARX1TAB3 PO; +GLIP2.5T46 PO; -GLIP2.5T6 PO; +ISOS1TAB36 PO; +METH-855 PO; +PERCOCET PO; +POTA-149 PO; +ROCURONIUM BROMIDE 50MG/5ML VIAL As Ordered ONE; +SUGAMMADEX SODIUM 500 MG/5 ML VIAL As Ordered ONE; +TIRZ2.5P SQ; +VIBE75TA PO
[2025-01-16 09:25] VITALS: BP 180/80; TEMP 98; O2SAT 93
[2025-01-16] MEDS: ISOVUE-300 61% 100 ML VIAL IV SCH (09:45)
[2025-01-16 10:19] LABS: PLATELET COUNT, AUTOMATED 615 10^3/uL (150-450)
[2025-01-16 10:32] LABS: INR 0.93
[2025-01-16] MEDS: CIPROFLOXACIN 400 MG in IV 1 EA IV ONE (12:57)
[2025-01-16] MEDS: LIDOCAINE 1% MDV 20 ML VIAL SC SCH (12:57)
[2025-01-16] MEDS: SODIUM CHLORIDE 0.9% 1000 ML XX SCH (12:58)
== END ==
LOC: M IRPRO 09:10
PROVIDERS: ATTEND Urology
DX: N20.0 Calculus of kidney (principal)
CPT/HCPCS: 36415; 50433; 76000; 76942; 80048; 82365; 85027; 85610; C1758; C1894; J0131; J0690; J0744; J1100; J1171; J1596; J2250; J2405; J3010; Q9967

== ENCOUNTER → 2025-02-20 | Outpatient (REF) | payer OTHER ==
[~2025-02-20] MED LIST changes: -ACETAMINOPHEN 1000MG/100ML IV BAG As Ordered ONE; -ALBUTEROL 90 MCG/ACT 8 GM HFA INHALER INH PRN; +COLA100C5 PO; -DEXTROSE 50% 50 ML SYRINGE IV PRN; -EZET10TA21 PO; +EZET10TA57 PO; -GLUCAGON INJ 1 MG VIAL SC PRN; -GLUCOSE 4 GM CHEW PO PRN; -GLYCOPYRROLATE INJ 0.2 MG/ML 2 ML VIAL As Ordered ONE; -LIDOCAINE 2% 100 MG/5 ML SDV (FOR ANES.) As Ordered ONE; +METH-1100 PO; -METH-855 PO; -MIDAZOLAM INJ 2 MG/2 ML VIAL As Ordered ONE; -ONDANSETRON 4MG 2ML VIAL As Ordered ONE; -dexAMETHasone 4 MG/ML 1 ML VIAL As Ordered ONE
[2025-02-20 15:46] LABS: APPEARANCE, URINE CLOUDY (CLEAR); BACTERIA, URINE AUTO 1+ (NEGATIVE); BILIRUBIN, URINE AUTO NEGATIVE (NEGATIVE); BLOOD, URINE BLOOD 2+ (NEGATIVE); GLUCOSE, URINE (UA) AUTO 3+ mg/dL (NEGATIVE); KETONE, URINE AUTO NEGATIVE (NEGATIVE); LEUKOCYTE ESTERASE, URINE AUTO 3+ (NEGATIVE); MUCUS, URINE SMALL (NEGATIVE); NITRITE, URINE AUTO NEGATIVE (NEGATIVE); PROTEIN, URINE AUTO 1+ mg/dL (NEGATIVE); RBC, URINE AUTO 89 /HPF (0-3); SPECIFIC GRAVITY URINE AUTO 1.008 (1.002-1.035); SQUAMOUS EPITHELIAL CELL UR AU 1 /HPF (0-6); TRANSITIONAL EPITHELIAL AUTO 2 /HPF; UROBILINOGEN, URINE AUTO 0.2 mg/dL (0.0-2.0); WBC, URINE AUTO TNTC /HPF (0-3); YEAST LIKE CELL URINE AUTO MODERATE
== END ==
LOC: M SMT 14:42
PROVIDERS: ATTEND Urology
DX: N39.0 Urinary tract infection, site not specified (principal)